=== PATIENT | female | born 1955 | race Caucasian/White ===

== ENCOUNTER 2016-09-17 09:29 | Emergency (ER) | payer OTHER ==
[~2016-09-17] VITALS: Ht 139.7 cm; Wt 49.9 kg
[~2016-09-17 09:29] MED LIST: NKM; PROTONIX40 MG ORAL; TYLENOL EXTRA500 MG ORAL
[2016-09-17 10:03] VITALS: BP 142/77
[2016-09-17] MEDS ORDERED: PREDNISONE20 MG ORAL (10:04)
[2016-09-17] MEDS ORDERED: KEFLEX500 MG ORAL (10:04)
[2016-09-17] MEDS ORDERED: BACTRIM DS TAB1 EAC1 ORAL (10:04)
[2016-09-17 10:15] VITALS: BP 142/77
--- NOTE | 2016-09-17 12:57 | Emergency Room Report ---
History of Present Illness General Chief Complaint: General Complaint Source: Patient Present Illness HPI Patient presents emergency department today complaining of a rash the right side of face. Patient apparently had visited her dentist a few days ago to have her teeth removed. Since then she's had this rash erythematous almost bruising on the right sided eye as well as her upper lips. No difficulty breathing. No history of shortness of breath. No other complaints are noted. Symptoms noted to be mild to moderate. No other modifying factors. No other associated signs and symptoms. No other complaints were noted. Allergies: Coded Allergies: ERYTHROMYCIN BASE (Verified Allergy, Unknown, 09/17/16) Uncoded Allergies: ERYTHROMYCIN (Allergy, Unknown, 09/17/16) Patient History Past Medical History: other - mental retardation Past Surgical History: none Pertinent Family History: none Social History: Denies: alcohol use, drug use, smoking Reviewed Nursing Documentation: PMH: Agreed, PSxH: Agreed Nursing Documentation-PMH Past Medical History: No History, Except For Hx Cardiac Problems: No Hx Cancer: No Hx Gastrointestinal Problems: No Hx Neurological Problems: Yes - MENTAL RETARDATION. Hx Cerebrovascular Accident: No - GERD Review of Systems All Other Systems: negative except mentioned in HPI Physical Exam Vital Signs Date Time Temp Pulse Resp B/P Pulse Ox O2 Delivery O2 Flow Rate FiO2 09/17/16 09:37 97.5 105 20 142/77 99 Room Air Sp02 EP Interpretation: reviewed, normal General Appearance: normal inspection, well appearing, no apparent distress, alert Head: atraumatic Eyes: bilateral eye normal inspection ENT: hearing grossly normal, normal voice, other - right periorbital rash and upper lip rash erythematous Neck: normal inspection, full range of motion, supple, no bony tend Respiratory: normal inspection, lungs clear, normal breath sounds, no respiratory distress, no retraction, no wheezing Cardiovascular #1: regular rate, rhythm, no edema Gastrointestinal: normal inspection, normal bowel sounds, non tender, soft, no guarding, no hernia Genitourinary: no CVA tenderness Musculoskeletal: normal inspection, back normal, normal range of motion Neurologic: normal inspection, alert, responsive, speech normal Psychiatric: normal inspection, judgement/insight normal, mood/affect normal Skin: rash - face Medical Decision Making Diagnostic Impression: Primary Impression: Allergic reaction Qualified Codes: T78.40XA - Allergy, unspecified, initial encounter Additional Impression: Cellulitis Qualified Codes: L03.211 - Cellulitis of face ER Course Patient presents emergency department today complaining of a rash of right- sided face and upper lip. Differential considerations include acute allergic reaction, cellulitis, bruising just to name a few. Patient's exam is consistent with a contact dermatitis and cellulitis. The patient benefit from antibiotics. Case was discussed with Dr. Alex nurse practitioner who will followup with the patient. We'll start patient on prednisone Keflex and Bactrim.Patient is advised to follow up with primary doctor in 2-3 days and return the emergency room for any worsening symptoms and as needed. Last Vital Signs Date Time Temp Pulse Resp B/P Pulse Ox O2 Delivery O2 Flow Rate FiO2 09/17/16 10:15 97.5 20 142/77 99 Room Air 09/17/16 09:37 105 Status: improved Disposition: HOME, SELF-CARE Condition: Stable Scripts Trimethoprim/Sulfamethoxazole 160/800* (BACTRIM DS TABLET*) 1 Each Tablet 1 TAB ORAL Q12H, #14 TAB 0 Refills Prov: ROSA MARIA RIVERO M.D. 09/17/16 Prednisone* (PREDNISONE*) 20 Mg Tablet 40 MG ORAL DAILY, #10 TAB Prov: ROSA MARIA RIVERO M.D. 09/17/16 Cephalexin* (KEFLEX*) 500 Mg Capsule 500 MG ORAL Q6H, #28 CAP 0 Refills Prov: ROSA MARIA RIVERO M.D. 09/17/16 Referrals: NOT CHOSEN IPA/,REFERRING Patient Instructions: Cellulitis, Contact Dermatitis, [id number], Cellulitis , [id number] ROSA MARIA RIVERO M.D. Sep 17, 2016 12:57
== END 2016-09-17 10:18 | disposition home or self-care (01) ==
LOC: EMR 10:10
DX: T78.40XA Allergy, unspecified, initial encounter (principal); X58.XXXA Exposure to other specified factors, initial encounter; R21 Rash and other nonspecific skin eruption; L03.211 Cellulitis of face; K21.9 Gastro-esophageal reflux disease without esophagitis; Z88.1 Allergy status to other antibiotic agents
CPT/HCPCS: 99284

== ENCOUNTER 2017-12-13 11:46 | Emergency (ER) | payer OTHER ==
[~2017-12-13] VITALS: Ht 121.9 cm; Wt 35.4 kg
[~2017-12-13 11:46] MED LIST changes: +BACTRIM DS TAB1 EAC1 ORAL; +KEFLEX500 MG ORAL; +PREDNISONE20 MG ORAL
[2017-12-13] MEDS ORDERED: NS IVLG ONE (12:15)
[2017-12-13 13:06] LABS: BASOPHILS % (AUTO) 0.3 % (0.0-2.0); HEMATOCRIT 35.4 % (37.0-47.0); HEMOGLOBIN 11.7 G/DL (12.0-16.0); MEAN CORPUSCULAR VOLUME 95 FL (80-99); MONOCYTES % (AUTO) 13.5 % (1.0-10.0); NEUTROPHILS % (AUTO) 74.2 % (45.0-75.0); PLATELET COUNT 199 K/UL (150-450); RED BLOOD COUNT 3.73 M/UL (4.20-5.40); RED CELL DISTRIBUTION WIDTH 11.1 % (11.6-14.8); WHITE BLOOD COUNT 7.6 K/UL (4.8-10.8)
[2017-12-13 13:14] LABS: ANION GAP 11 mmol/L (5-15); BLOOD UREA NITROGEN 14 mg/dL (7-18); CALCIUM 9.1 MG/DL (8.5-10.1); CARBON DIOXIDE 22 MMOL/L (21-32); CHLORIDE 102 MMOL/L (98-107); CREATININE 0.8 MG/DL (0.55-1.30); POTASSIUM 3.7 MMOL/L (3.5-5.1); SODIUM 135 MMOL/L (136-145)
[2017-12-13 13:25] LABS: ALANINE AMINOTRANSFERASE 22 U/L (12-78); ALBUMIN 3.1 G/DL (3.4-5.0); ALBUMIN/GLOBULIN RATIO 0.7 (1.0-2.7); ALKALINE PHOSPHATASE 123 U/L (46-116); ASPARTATE AMINO TRANSFERASE 17 U/L (15-37); BILIRUBIN,TOTAL 0.3 MG/DL (0.2-1.0); CKMB 0.9 NG/ML (0.0-3.6); CREATINE KINASE 140 U/L (26-308)
[2017-12-13 14:00] VITALS: BP 159/78
[2017-12-13 14:14] LABS: APPEARANCE,URINE TURBID; BILIRUBIN, URINE NEGATIVE (NEGATIVE); COLOR,URINE PALE YELLOW; GLUCOSE, URINE (UA) 4+ (NEGATIVE); KETONES,URINE NEGATIVE (NEGATIVE); LEUKOCYTE ESTERASE ,URINE 3+ (NEGATIVE); NITRITE,URINE POSITIVE (NEGATIVE); PH,URINE 5 (4.5-8.0); PROTEIN,URINE 2+ (NEGATIVE); UROBILINOGEN,URINE NORMAL MG/DL (0.0-1.0)
--- NOTE | 2017-12-13 14:45 | Diagnostic Imaging Report ---
Indication: Shortness of breath Technique: One view of the chest Comparison: 04/05/2015 Findings: Large retrocardiac hiatal hernia again demonstrated. Lungs and pleural spaces are clear. Heart is upper limits of normal in size. Previously demonstrated interstitial congestion and bilateral pleural effusions are not evident currently Impression: No acute process Large hiatal hernia
[2017-12-13] MEDS ORDERED: cefTRIAXone 1 GM in NS 55 ML IVPB ONE (15:15)
[2017-12-13 16:00] VITALS: BP 109/72
--- NOTE | 2017-12-13 16:26 | Emergency Room Report ---
History of Present Illness General Chief Complaint: Generalized Weakness Source: Caregiver (AngélicaNela JacquelineJude MACDONALD) Present Illness HPI This patient has a history of developmental delay and mental retardation. She is nonverbal at baseline. The caregiver the patient brings her in for concern of generalized weakness. She states that normally she is able to ambulate but hasn't been able to lately. She also has noted some swelling in both of her legs and arms. The patient herself is nonverbal. There are no other complaints. (Nela Lindsay DO) Allergies: Coded Allergies: ERYTHROMYCIN BASE (Verified Allergy, Unknown, 09/17/16) Uncoded Allergies: ERYTHROMYCIN (Allergy, Unknown, 09/17/16) Patient History Past Medical History: see triage record, GERD, other - mental retardation Social History: Denies: smoking, alcohol use, drug use Reviewed Nursing Documentation: PMH: Agreed; PSxH: Agreed (Nela Lindsay DO) Nursing Documentation-PMH Hx Cardiac Problems: No - HEP B/ NON VERBAL LOSE STOOLS Hx Cancer: No Hx Gastrointestinal Problems: No Hx Neurological Problems: Yes - MENTAL RETARDATION. Hx Cerebrovascular Accident: No - GERD (Nela Lindsay DO) Review of Systems All Other Systems: negative except mentioned in HPI (Nela Lindsay DO) Physical Exam Vital Signs Date Time Temp Pulse Resp B/P (MAP) Pulse Ox O2 Delivery O2 Flow Rate FiO2 12/13/17 11:54 98.3 117 16 142/93 95 Room Air 98.2 Sp02 EP Interpretation: reviewed, normal General Appearance: no apparent distress, alert, GCS 15, non-toxic, Chronically Ill Head: normocephalic, atraumatic ENT: no angioedema Neck: full range of motion, supple/symm/no masses Respiratory: chest non-tender, lungs clear, normal breath sounds, no respiratory distress, no retraction, no accessory muscle use, speaking full sentences Cardiovascular #1: no edema, tachycardia Gastrointestinal: normal bowel sounds, non tender, soft, non-distended, no guarding, no rebound Rectal: deferred Musculoskeletal: normal range of motion, swelling - 1+pitting edema BLE Neurologic: alert, responsive, other - At baseline, non-verbal, non-focal Psychiatric: mood/affect normal Skin: warm/dry, well hydrated, other - See RN skin exam (Nela Lindsay DO) General Appearance: alert, other - incomprehensible sounds, Chronically Ill Head: atraumatic Neck: full range of motion, supple, thyroid normal Respiratory: chest non-tender, lungs clear, normal breath sounds Cardiovascular #1: tachycardia, edema - trace edema Gastrointestinal: normal inspection, normal bowel sounds, non tender, soft Musculoskeletal: back normal, decreased range of motion Neurologic: motor weakness - generalized weaknse, other - incomprehensible sounds, moves all extremities, eyes open Psychiatric: normal inspection Skin: normal inspection, no rash (Devyn Moss MD) Medical Decision Making Diagnostic Impression: Primary Impression: Pyelonephritis Additional Impressions: Hyperglycemia Development delay ER Course This elderly and developmentally delayed female presents with generalized weakness. She is found to have a urinary tract infection and an elevated lactate. She was given IV fluids and Rocephin. She is also found to have an elevated blood sugar. Further discussion with the patient's caregiver and she states that she had had borderline diabetes that is not been treated other than diet modification. I'm concerned this patient has untreated diabetes and will need implementation of diabetes treatment. The patient's [employer] insurance company requested her transfer to a contracted facility. She is stable for transfer and was transferred for further evaluation and treatment. Laboratory Tests Test 12/13/17 12:20 12/13/17 13:58 12/13/17 15:10 White Blood Count 7.6 K/UL (4.8-10.8) Red Blood Count 3.73 M/UL (4.20-5.40) L Hemoglobin 11.7 G/DL (12.0-16.0) L Hematocrit 35.4 % (37.0-47.0) L Mean Corpuscular Volume 95 FL (80-99) Mean Corpuscular Hemoglobin 31.3 PG (27.0-31.0) H Mean Corpuscular Hemoglobin Concent 33.0 G/DL (32.0-36.0) Red Cell Distribution Width 11.1 % (11.6-14.8) L Platelet Count 199 K/UL (150-450) Mean Platelet Volume 7.0 FL (6.5-10.1) Neutrophils (%) (Auto) 74.2 % (45.0-75.0) Lymphocytes (%) (Auto) 12.0 % (20.0-45.0) L Monocytes (%) (Auto) 13.5 % (1.0-10.0) H Eosinophils (%) (Auto) 0.0 % (0.0-3.0) Basophils (%) (Auto) 0.3 % (0.0-2.0) Prothrombin Time 10.9 SEC (9.30-11.50) Prothrombin Time INR 1.0 (0.9-1.1) PTT 27 SEC (23-33) Sodium Level 135 MMOL/L (136-145) L Potassium Level 3.7 MMOL/L (3.5-5.1) Chloride Level 102 MMOL/L (98-107) Carbon Dioxide Level 22 MMOL/L (21-32) Anion Gap 11 mmol/L (5-15) Blood Urea Nitrogen 14 mg/dL (7-18) Creatinine 0.8 MG/DL (0.55-1.30) Estimate Glomerular Filtration Rate > 60 mL/min (>60) Glucose Level 308 MG/DL (74-106) H Lactic Acid Level 2.30 mmol/L (0.4-2.0) H 1.50 mmol/L (0.66-2.22) Calcium Level 9.1 MG/DL (8.5-10.1) Total Bilirubin 0.3 MG/DL (0.2-1.0) Aspartate Amino Transferase (AST) 17 U/L (15-37) Alanine Aminotransferase (ALT) 22 U/L (12-78) Alkaline Phosphatase 123 U/L (46-116) H Total Creatine Kinase 140 U/L (26-308) Creatine Kinase MB 0.9 NG/ML (0.0-3.6) Creatine Kinase MB Relative Index 0.6 Troponin I 0.000 ng/mL (0.000-0.056) Total Protein 7.6 G/DL (6.4-8.2) Albumin 3.1 G/DL (3.4-5.0) L Globulin 4.5 g/dL Albumin/Globulin Ratio 0.7 (1.0-2.7) L Urine Color Pale yellow Urine Appearance Turbid Urine pH 5 (4.5-8.0) Urine Specific Sheldon 1.010 (1.005-1.035) Urine Protein 2+ (NEGATIVE) H Urine Glucose (UA) 4+ (NEGATIVE) H Urine Ketones Negative (NEGATIVE) Urine Occult Blood 2+ (NEGATIVE) H Urine Nitrite Positive (NEGATIVE) H Urine Bilirubin Negative (NEGATIVE) Urine Urobilinogen Normal MG/DL (0.0-1.0) Urine Leukocyte Esterase 3+ (NEGATIVE) H Urine RBC 2-4 /HPF (0 - 2) H Urine WBC 30-40 /HPF (0 - 2) H Urine Squamous Epithelial Cells Occasional /LPF Urine Bacteria Many /HPF (NONE) H (Nela Lindsay DO) ER Course Patient was endorsed to me by Dr. Oconnell for increased generalized weakness. The patient was noted to have evidence of pyelonephritis as well as uncontrolled diabetes. The patient was noted to have initial elevation of her lactic acid level. Patient was given IV fluids as well as IV Rocephin by Dr. Oconnell. The patient was discussed with Dr. Silver who agreed to accept the patient is a transfer to [facility]. Labs Test 12/13/17 12:20 12/13/17 13:58 12/13/17 15:10 White Blood Count 7.6 K/UL (4.8-10.8) Red Blood Count 3.73 M/UL (4.20-5.40) Hemoglobin 11.7 G/DL (12.0-16.0) Hematocrit 35.4 % (37.0-47.0) Mean Corpuscular Volume 95 FL (80-99) Mean Corpuscular Hemoglobin 31.3 PG (27.0-31.0) Mean Corpuscular Hemoglobin Concent 33.0 G/DL (32.0-36.0) Red Cell Distribution Width 11.1 % (11.6-14.8) Platelet Count 199 K/UL (150-450) Mean Platelet Volume 7.0 FL (6.5-10.1) Neutrophils (%) (Auto) 74.2 % (45.0-75.0) Lymphocytes (%) (Auto) 12.0 % (20.0-45.0) Monocytes (%) (Auto) 13.5 % (1.0-10.0) Eosinophils (%) (Auto) 0.0 % (0.0-3.0) Basophils (%) (Auto) 0.3 % (0.0-2.0) Prothrombin Time 10.9 SEC (9.30-11.50) Prothromb Time International Ratio 1.0 (0.9-1.1) Activated Partial Thromboplast Time 27 SEC (23-33) Sodium Level 135 MMOL/L (136-145) Potassium Level 3.7 MMOL/L (3.5-5.1) Chloride Level 102 MMOL/L (98-107) Carbon Dioxide Level 22 MMOL/L (21-32) Anion Gap 11 mmol/L (5-15) Blood Urea Nitrogen 14 mg/dL (7-18) Creatinine 0.8 MG/DL (0.55-1.30) Estimat Glomerular Filtration Rate > 60 mL/min (>60) Glucose Level 308 MG/DL (74-106) Calcium Level 9.1 MG/DL (8.5-10.1) Total Bilirubin 0.3 MG/DL (0.2-1.0) Aspartate Amino Transf (AST/SGOT) 17 U/L (15-37) Alanine Aminotransferase (ALT/SGPT) 22 U/L (12-78) Alkaline Phosphatase 123 U/L (46-116) Total Creatine Kinase 140 U/L (26-308) Creatine Kinase MB 0.9 NG/ML (0.0-3.6) Creatine Kinase MB Relative Index 0.6 Troponin I 0.000 ng/mL (0.000-0.056) Total Protein 7.6 G/DL (6.4-8.2) Albumin 3.1 G/DL (3.4-5.0) Globulin 4.5 g/dL Albumin/Globulin Ratio 0.7 (1.0-2.7) Urine Color Pale yellow Urine Appearance Turbid Urine pH 5 (4.5-8.0) Urine Specific Sheldon 1.010 (1.005-1.035) Urine Protein 2+ (NEGATIVE) Urine Glucose (UA) 4+ (NEGATIVE) Urine Ketones Negative (NEGATIVE) Urine Occult Blood 2+ (NEGATIVE) Urine Nitrite Positive (NEGATIVE) Urine Bilirubin Negative (NEGATIVE) Urine Urobilinogen Normal MG/DL (0.0-1.0) Urine Leukocyte Esterase 3+ (NEGATIVE) Urine RBC 2-4 /HPF (0 - 2) Urine WBC 30-40 /HPF (0 - 2) Urine Squamous Epithelial Cells Occasional /LPF Urine Bacteria Many /HPF (NONE) Lactic Acid Level 1.50 mmol/L (0.66-2.22) (Devyn Moss MD) EKG Diagnostic Results Rate: tachycardiac Rhythm: other - S.tachycardia ST Segments: other - [facility] Rhythm Strip Diag. Results EP Interpretation: yes Rate: 100's Rhythm: no PVC's, no ectopy, other Other Impression S.tachycardia [facility] Chest X-Ray Diagnostic Results Chest X-Ray Diagnostic Results : Chest X-Ray Ordered: Yes # of Views/Limited/Complete: 1 View Indication: Other Interpretation: no consolidation, no effusion, no pneumothorax, no acute cardiopulmonary disease Impression: No acute disease Electronically Signed by: Sherif ([facility]) Last Vital Signs Date Time Temp Pulse Resp B/P (MAP) Pulse Ox O2 Delivery O2 Flow Rate FiO2 12/13/17 14:00 103 20 159/78 100 Room Air 12/13/17 11:54 98.3 98.2 [facility] Status: unchanged (Devyn Moss MD) Disposition: XFER SHT-TRM HOSP Condition: Serious Referrals: [facility],REFERRING (PCP) Nela Lindsay Jude MACDONALD Dec 13, 2017 16:26 Devyn Moss MD Dec 13, 2017 17:16
[2017-12-13 18:00] VITALS: BP 140/70
[2017-12-13 18:57] VITALS: BP 140/70
== END 2017-12-13 18:59 | disposition short-term general hospital (02) ==
LOC: EMR 12:13
DX: N12 Tubulo-interstitial nephritis, not specified as acute or chronic (principal); R73.9 Hyperglycemia, unspecified; K44.9 Diaphragmatic hernia without obstruction or gangrene
CPT/HCPCS: 36415; 71045; 80053; 81003; 82550; 82553; 83605; 84484; 85025; 85610; 85730; 87040; 87086; 87181; 93005; 96361; 96365; 96375; 99284; J0696